=== PATIENT | male | born 1990 | race Caucasian/White ===

== ENCOUNTER 2017-02-25 09:23 | Emergency (ER) | payer SELFPAY ==
[2017-02-25] MEDS ORDERED: ERYTHROMYCIN 0.5% OPH OINTMENT 3.5 GM (ER DISP) OS PRN (11:58)
[2017-02-25] MEDS ORDERED: KETOROLAC TROMETHAMINE 0.45% 4 DROP/0.4 ML DROPERETTE OS ONE (12:01)
--- NOTE | 2017-02-25 12:02 | ER Document Report ---
ED Eye Complaint - General Chief Complaint: Eye Injury Stated Complaint: EYE INJURY Time Seen by Provider: 02/25/17 10:22 Mode of Arrival: Ambulatory Information source: Patient TRAVEL OUTSIDE OF THE [place] IN LAST 30 DAYS: No - HPI Onset: Last week Eye location: Left Injury: Yes Occurred at: Home, Indoors Severity: Severe Pain Level: 5 Exposure: Other - Dog toy flew in his eye Safety glasses worn: No Contact lenses worn: No Associated symptoms: Burning, Pain, Redness, Blurred vision - Related Data Allergies/Adverse Reactions: No Known Allergies Allergy (Verified 02/25/17 09:29) Past Medical History - General Information source: Patient - Social History Smoking Status: Current Every Day Smoker Cigarette use (# per day): Yes - 4-6 cigarettes a day Chew tobacco use (# tins/day): No Smoking Education Provided: Yes - less than 2 min Frequency of alcohol use: Occasional Drug Abuse: None Occupation: [employer] Lives with: Family Family History: Hypertension. denies: Arthritis, CAD, COPD, CVA, DM, Hyperlipidemia, Malignancy, Thyroid Disfunction Patient has suicidal ideation: No Patient has homicidal ideation: No - Past Medical History Cardiac Medical History: Reports: None Pulmonary Medical History: Reports: None EENT Medical History: Reports: None Neurological Medical History: Reports: None Endocrine Medical History: Reports: None Renal/ Medical History: Reports: None Malignancy Medical History: Reports None GI Medical History: Reports: None Musculoskeltal Medical History: Reports Hx Musculoskeletal Trauma Skin Medical History: Reports None Psychiatric Medical History: Reports: None Traumatic Medical History: Reports: None Surgical Hx: Negative - Immunizations Immunizations up to date: Yes Hx Diphtheria, Pertussis, Tetanus Vaccination: Yes Review of Systems - Review of Systems Constitutional: No symptoms reported EENT: Eye pain, Blurred vision, Tearing Cardiovascular: No symptoms reported Respiratory: No symptoms reported Gastrointestinal: No symptoms reported Genitourinary: No symptoms reported Male Genitourinary: No symptoms reported Musculoskeletal: No symptoms reported Skin: No symptoms reported Hematologic/Lymphatic: No symptoms reported Neurological/Psychological: No symptoms reported -: Yes All other systems reviewed and negative Physical Exam - Vital signs Vitals: Temp Pulse Resp BP Pulse Ox 97.8 F 98 18 147/80 H 97 02/25/17 09:25 02/25/17 09:25 02/25/17 09:25 02/25/17 09:25 02/25/17 09:25 Interpretation: Normal - General General appearance: Appears well, Alert - HEENT Head: Normocephalic, Atraumatic Eyes: Normal Cornea: Corneal abrasion, Flourescein stain uptake. No: Corneal ulcer, Dendrite , Embedded foreign body, Superficial foreign body Extraocular movements intact: Yes Eyelashes: Normal Pupils: PERRL Visual acuity- Right eye: 20/25 Visual acuity- Left eye: 20/70 Visual acuity- Both eyes: 20/25 Corrective lenses worn: No - tetracaine drops applied to pts left eye by zulay reinoso prior to exam. Ears: Normal External canal: Normal Tympanic membrane: Normal Sinus: Normal Nasal: Normal Mouth/Lips: Normal Pharynx: Normal Neck: Normal - Respiratory Respiratory status: No respiratory distress Chest status: Nontender Breath sounds: Normal Chest palpation: Normal - Cardiovascular Rhythm: Regular Heart sounds: Normal auscultation Murmur: No - Abdominal Inspection: Normal Distension: No distension Bowel sounds: Normal Tenderness: Nontender Organomegaly: No organomegaly - Back Back: Normal, Nontender - Extremities General upper extremity: Normal inspection, Nontender, Normal color, Normal ROM , Normal temperature General lower extremity: Normal inspection, Nontender, Normal color, Normal ROM , Normal temperature, Normal weight bearing. No: Lisa's sign - Neurological Neuro grossly intact: Yes Cognition: Normal Orientation: AAOx4 Caterina Coma Scale Eye Opening: Spontaneous Caterina Coma Scale Verbal: Oriented Caterina Coma Scale Motor: Obeys Commands Rinard Coma Scale Total: 15 Speech: Normal Motor strength normal: LUE, RUE, LLE, RLE Sensory: Normal - Psychological Associated symptoms: Normal affect, Normal mood - Skin Skin Temperature: Warm Skin Moisture: Dry Skin Color: Normal Course - Vital Signs Vital signs: Temp Pulse Resp BP Pulse Ox 97.5 F 80 20 120/87 H 97 02/25/17 12:35 02/25/17 12:35 02/25/17 12:35 02/25/17 12:35 02/25/17 12:35 Discharge - Discharge Clinical Impression: Left corneal abrasion Qualifiers: Encounter type: initial encounter Qualified Code(s): S05.02XA - Injury of conjunctiva and corneal abrasion without foreign body, left eye, initial encounter Condition: Stable Disposition: HOME, SELF-CARE Additional Instructions: Corneal Abrasion You have a corneal abrasion, a scratch on the surface of the eye. The pain of a corneal abrasion feels like a sharp particle in the eye. Usually, antibiotics are placed in the eye to prevent infection. Occasionally, medication will be placed in the eye to dilate the pupil. This is done to relieve some of your discomfort and is only temporary. Pain medication may be required. Don't drive or operate machinery until you have the use of both your eyes. The abrasion usually is healed in one or two days. A follow-up examination to confirm healing is recommended. Call the doctor or return at once if you develop severe pain, decreasing vision, eye swelling, or purulent drainage. Place 1/2 inch ribbon of the erythromycin and the lower eyelid of the left eye every 3-4 hours while awake up to a max of 6 times in a day. This is for the abrasion. Eyedrop Use Eyedrops are most easily applied by pulling down on the cheek just below the lower eyelid. The lower lid will pop out to form a pouch into which you can drop the medicine. A small brief sting is not unusual, especially if the eye is reddened and irritated already. Use the drops exactly as recommended. You should see the doctor at once if there is a decrease in vision, swelling of the eye, or an increase in discomfort. Oral Narcotic Medication You have been given a prescription for pain control. This medication is a narcotic. It's best taken with food, as nausea can result if taken on an empty stomach. Don't operate machinery or drive within six hours of taking this medication. Do not combine this medicine with alcohol, or with any medication which can cause sedation (such as cold tablets or sleeping pills) unless you get permission from the physician. Narcotics tend to cause constipation. If possible, drink plenty of fluids and eat a diet high in fiber and fruits. FOLLOW-UP CARE: If you have been referred to a physician for follow-up care, call the physician s office for an appointment as you were instructed or within the next two days. If you experience worsening or a significant change in your symptoms, notify the physician immediately or return to the Emergency Department at any time for re-evaluation. Up with the child care associate tomorrow if you cannot get into the one that I listed, call around and to you can get into an eye doctor tomorrow. Please complete the patient's satisfaction survey if you get one and return. If you do not receive a survey you can go to [facility] website [email or web address] and place your comments about your very good care. Thank you very much. It was a pleasure be in your medical provider today. Prescriptions: Hydrocodone/Acetaminophen [[place] 5-325 mg Tablet] 1 tab PO Q6HP PRN #7 tablet PRN Reason: Erythromycin Base [Erythromycin] 3.5 gm LFT_EYE ASDIR PRN #1 oint..gm. PRN Reason: Ketorolac Tromethamine 0.45% [Acuvail 0.45% Oph Soln 0.4 ml/Dropperette] 1 drop LFT_EYE QIDP PRN #1 droperette PRN Reason: Forms: Smoking Cessation Education, Return to Work Referrals: [facility] [Provider Group] - Follow up as needed
[2017-02-25 12:36] VITALS: BP 120/87
== END 2017-02-25 12:36 | disposition home or self-care (01) ==
LOC: ER 09:23
DX: S05.02XA Injury of conjunctiva and corneal abrasion without foreign body, left eye, initial encounter (principal); W20.8XXA Other cause of strike by thrown, projected or falling object, initial encounter; Y93.K9 Activity, other involving animal care; Y92.009 Unspecified place in unspecified non-institutional (private) residence as the place of occurrence of the external cause; F17.210 Nicotine dependence, cigarettes, uncomplicated; Z71.6 Tobacco abuse counseling
CPT/HCPCS: 99283

== ENCOUNTER 2017-10-15 05:53 | Emergency (ER) | payer SELFPAY ==
[2017-10-15] MEDS ORDERED: OXYCODONE-ACETAMINOPHEN 5-325 MG TABLET PO ONE (06:30)
--- NOTE | 2017-10-15 06:41 | ER Document Report ---
ED General - General Chief Complaint: Foot Injury Stated Complaint: FOOT INJURY Time Seen by Provider: 10/15/17 06:28 Notes: 27 year male presents with left foot swelling and tenderness with bruising, constant for about 24 hours since he reportedly kicked a table while intoxicated. He cannot bear weight. He has tingling in his toes, all 5. TRAVEL OUTSIDE OF THE [place] IN LAST 30 DAYS: No - Related Data Allergies/Adverse Reactions: No Known Allergies Allergy (Verified 10/15/17 05:56) Past Medical History - Social History Smoking Status: Current Every Day Smoker Chew tobacco use (# tins/day): No Smoking Education Provided: Yes - The patient ED visit today was directly related to their abuse of tobacco. Frequency of alcohol use: None Drug Abuse: None Family History: Hypertension. denies: Arthritis, CAD, COPD, CVA, DM, Hyperlipidemia, Malignancy, Thyroid Disfunction Patient has suicidal ideation: No Patient has homicidal ideation: No Renal/ Medical History: Denies: Hx Peritoneal Dialysis Musculoskeltal Medical History: Reports Hx Musculoskeletal Trauma - Immunizations Immunizations up to date: Yes Hx Diphtheria, Pertussis, Tetanus Vaccination: Yes Review of Systems - Review of Systems Notes: REVIEW OF SYSTEMS GEN: Denies fever, chills, weight loss ENT: Denies sore throat, nasal discharge, ear pain EYES: Denies blurry vision, eye pain, discharge CV: Denies chest pain, palpitations, edema RESP: Denies cough, shortness of breath, wheezing GI: Denies abdominal pain, nausea, vomiting, diarrhea MSK: Swelling bruising and tenderness of the lateral foot and ankle, SKIN: Denies rash, skin lesions LYMPH: Denies swollen glands/lymph nodes NEURO: Denies headache, focal weakness PSYCH: Denies depression, suicidal or homicidal ideation PHYSICAL EXAMINATION General: No acute distress, well-nourished Head: Atraumatic, normocephalic ENT: Mouth normal, oropharynx moist, no exudates or tonsillar enlargement Eyes: Conjunctiva normal, pupils equal, lids normal Neck: No JVD, supple, no guarding CVS: Normal rate, regular rhythm, no murmurs Resp: No resp distress, equal and normal breath sounds bilaterally GI: Nondistended, soft, no tenderness to palpation, no rebound or guarding Ext: No deformities, edema ecchymosis, dependent, from just distal to the left lateral malleolus to the midfoot and involving the fifth metatarsal base. Compartments appear soft. No foot pain with passive movement of the toes. Back: No CVA or midline TTP Skin: No rash, warm Lymphatic: No lymphadeopathy noted Neuro: Awake, alert. Face symmetric. GCS 15.Subjective decreased sensation in all 5 toes likely secondary to edema Physical Exam - Vital signs Vitals: Temp Pulse Resp BP Pulse Ox 97.9 F 73 18 131/75 H 96 10/15/17 06:03 10/15/17 06:03 10/15/17 06:03 10/15/17 06:03 10/15/17 06:03 Course - Re-evaluation Re-evalutation: 10/15/17 06:40 Foot injury while intoxicated likely resulting in fracture of either the base of the fifth metatarsal, versus ATFL sprain. X-rays of ankle and foot. Percocet for pain. Numbness of the toes does not appear to be due to compartment syndrome based on exam likely secondary to edema , dependent, as the patient has not been elevating his foot. 10/15/17 07:15 X-rays negative. Splint crutches weightbearing as tolerated. Given standard return precautions for occult fracture. I have discussed with the patient there likely diagnosis, aftercare plan, follow -up plans and my usual and customary return precautions. They verbalized understanding of this. - Vital Signs Vital signs: Temp Pulse Resp BP Pulse Ox 97.9 F 73 18 131/75 H 96 10/15/17 06:03 10/15/17 06:03 10/15/17 06:03 10/15/17 06:03 10/15/17 06:03 - Diagnostic Test Radiology reviewed: Image reviewed, Reports reviewed Discharge - Discharge Clinical Impression: Sprain of left ankle Qualifiers: Encounter type: initial encounter Involved ligament of ankle: anterior talofibular ligament Qualified Code(s): S93.492A - Sprain of other ligament of left ankle, initial encounter Condition: Good Disposition: HOME, SELF-CARE Instructions: Ice Packs ([facility]), Oral Narcotic Medication ([facility]), Sprained Ankle ( [facility]) Additional Instructions: If your pain persists beyond 1 week and he still cannot bear weight on her ankle there may be a chance that we missed a small fracture on the x-ray and you should return here to the ER for a repeat film. Prescriptions: Hydrocodone/Acetaminophen [[place] 5-325 mg Tablet] 1 tab PO Q4HP PRN #13 tablet PRN Reason:
--- NOTE | 2017-10-15 07:09 | RADIOLOGY REPORT (SQ) ---
EXAM DESCRIPTION: FOOT LEFT COMPLETE CLINICAL HISTORY: pain ttp ?fx COMPARISON: None. FINDINGS: 3 views of the left foot. No acute fracture or dislocation. The tarsals and metatarsals are appropriately aligned. IMPRESSION: No acute fracture or dislocation.
--- NOTE | 2017-10-15 07:10 | RADIOLOGY REPORT (SQ) ---
EXAM DESCRIPTION: ANKLE LEFT COMPLETE CLINICAL HISTORY: prox lat ttp COMPARISON: None. FINDINGS: 3 views of the left ankle. No acute fracture or dislocation. Tibial plafond and talar dome in appropriate alignment. Base of the fifth metatarsal is intact. IMPRESSION: No acute fracture or dislocation.
[2017-10-15 07:49] VITALS: BP 122/79
== END 2017-10-15 07:53 | disposition home or self-care (01) ==
LOC: ER 05:53
DX: S93.492A Sprain of other ligament of left ankle, initial encounter (principal); S90.32XA Contusion of left foot, initial encounter; W22.03XA Walked into furniture, initial encounter; F17.200 Nicotine dependence, unspecified, uncomplicated
CPT/HCPCS: 99283; 73610; 73630; L1902

== ENCOUNTER 2018-04-12 07:05 | Emergency (ER) | payer SELFPAY ==
[2018-04-12 07:12] VITALS: BP 137/78
--- NOTE | 2018-04-12 07:58 | ER Document Report ---
HPI - HPI Pain Level: 5 Notes: Patient is a 27-year-old male no significant past medical history who presents to the ED complaining of right hand tingling to the first 3-1/2 digits occasionally to the fourth and fifth digit, wrist soreness, occasional weakness with gripping objects 2 years. Patient states that he has this every day and usually at nighttime he feels like his hand is sleeping. Patient states that he does use his hands often, but has never had it evaluated. He denies any IV drug use. Denies any other injury. Denies any drug allergies. No other concerns or complaints. Denies any headache, fever, URI, sore throat, chest pain, palpitations, syncope, cough, shortness of breath, wheeze, dyspnea, abdominal pain, nausea/vomiting/diarrhea, urinary retention, dysuria, hematuria , numbness/tingling, saddle anesthesia, muscle paralysis, or rash. - ROS Systems Reviewed and Negative: Yes All other systems reviewed and negative Past Medical History - Social History Smoking Status: Current Every Day Smoker Family History: Hypertension. denies: Arthritis, CAD, COPD, CVA, DM, Hyperlipidemia, Malignancy, Thyroid Disfunction Renal/ Medical History: Denies: Hx Peritoneal Dialysis Musculoskeletal Medical History: Reports Hx Musculoskeletal Trauma - Immunizations Immunizations up to date: Yes Hx Diphtheria, Pertussis, Tetanus Vaccination: Yes Vertical Provider Document - CONSTITUTIONAL Agree With Documented VS: Yes Notes: PHYSICAL EXAMINATION: GENERAL: Well-appearing, well-nourished and in no acute distress. NECK: Normal range of motion, supple without lymphadenopathy. Spurling neg. LUNGS: Breath sounds clear to auscultation bilaterally and equal. No wheezes rales or rhonchi. HEART: Regular rate and rhythm without murmurs, rubs, gallops. Musculoskeletal: Rt wrist/hand/fingers: FROM to passive/active. Strength 5+/5. N/V intact distal. No bony tenderness. No erythema, ecchymosis, swelling, deformity, or severe atrophy noted. + tinel/phalen at the median nerve and minimally to the ulnar nerve. Extremities: No cyanosis, clubbing, or edema b/l. Peripheral pulses 2+. Capillary refill less than 3 seconds. NEUROLOGICAL: Normal speech, normal gait. Normal sensory, motor exams PSYCH: Normal mood, normal affect. SKIN: Warm, Dry, normal turgor, no rashes or lesions noted. - INFECTION CONTROL TRAVEL OUTSIDE OF THE [place] IN LAST 30 DAYS: No Course - Re-evaluation Re-evalutation: 04/12/18 07:55 Patient is an afebrile, well-hydrated, 27-year-old male who presents to the ED with 2 years of signs and symptoms most consistent with carpal tunnel syndrome of the right side. Vitals are acceptable without any significant tachycardia, tachypnea, or hypoxia. PE is otherwise unremarkable for any neurovascular compromise, obvious tendon/ligament rupture, obvious fracture/dislocation, septic joint, or any track donaldson. No labs or imaging warranted at this time based on H&P. Patient has a positive Tinel and Phalen. There is no sign of infection. Cockup wrist splint given today. I will be sending him home with a prescription for Voltaren gel. Advised patient that he should call orthopedics today to schedule an appointment for further evaluation and management. Recheck with your PCM in 3-5 days as well. Return to the ED with any worsening/ concerning symptoms otherwise as reviewed in discharge. Patient is in agreement. - Vital Signs Vital signs: Temp Pulse Resp BP Pulse Ox 97.6 F 101 H 18 137/78 H 96 04/12/18 07:09 04/12/18 07:09 04/12/18 07:09 04/12/18 07:09 04/12/18 07:09 Discharge - Discharge Clinical Impression: Carpal tunnel syndrome, right Condition: Stable Disposition: HOME, SELF-CARE Additional Instructions: Rest, Ice, Compression, Elevation Use splint as directed Tylenol/ibuprofen as needed Light stretches daily Strength exercises as able Moist heat and massage may help F/u with your PCP in 3-5 days for a recheck Call orthopedics today to schedule an appointment for further evaluation and management Return to the ED with any worsening symptoms and/or development of fever, headache, chest pain, palpitations, syncope, shortness of breath, trouble breathing, abdominal pain, n/v/d, muscle weakness/paralysis, numbness/tingling, swelling, redness, or other worsening symptoms that are concerning to you. Prescriptions: Diclofenac Sodium [Voltaren] 4 gm TP QID PRN #100 gel..gm. PRN Reason: Forms: Elevated Blood Pressure Referrals: [facility] [Provider Group] - Follow up in 3-5 days
== END 2018-04-12 08:05 | disposition home or self-care (01) ==
LOC: ER 07:05
DX: G56.01 Carpal tunnel syndrome, right upper limb (principal); R20.2 Paresthesia of skin; R53.1 Weakness; F17.200 Nicotine dependence, unspecified, uncomplicated
CPT/HCPCS: 99283; L3908

== ENCOUNTER 2019-06-02 09:14 | Emergency (ER) | payer SELFPAY ==
[2019-06-02] MEDS ORDERED: ACETAMINOPHEN 325 MG TABLET PO ONE (10:49)
--- NOTE | 2019-06-02 10:49 | ER Document Report ---
ED General - General Chief Complaint: Shoulder Pain Stated Complaint: FALL/RIGHT SHOULDER PAIN Time Seen by Provider: 06/02/19 10:34 Primary Care Provider: CARMELINA LOVE JR, DO [ACTIVE PROVISIONAL STAFF] - Follow up in 3-5 days Notes: Patient is a 28-year-old male who presents the emergency department with a chief complaint of right shoulder pain. 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 Patient states that he cannot move his right arm and he feels like his symptoms are getting worse. He tried to take Motrin, but did not have any relief of his symptoms. Denies any past medical history. Does not take any medications. TRAVEL OUTSIDE OF THE [place] IN LAST 30 DAYS: No - Related Data Allergies/Adverse Reactions: No Known Allergies Allergy (Verified 06/02/19 09:14) Past Medical History - General Information source: Patient - Social History Smoking Status: Current Every Day Smoker Family History: Hypertension. denies: Arthritis, CAD, COPD, CVA, DM, Hyperlipidemia, Malignancy, Thyroid Disfunction Patient has suicidal ideation: No Patient has homicidal ideation: No Renal/ Medical History: Denies: Hx Peritoneal Dialysis Musculoskeletal Medical History: Reports Hx Musculoskeletal Trauma - Immunizations Immunizations up to date: Yes Hx Diphtheria, Pertussis, Tetanus Vaccination: Yes Review of Systems - Review of Systems Notes: REVIEW OF SYSTEMS: CONSTITUTIONAL : Denies recent illness. Denies recent unintentional weight loss. Denies fever, chills, or sweats. EENT: Denies eye, ear, throat, or mouth pain, discharge, or symptoms. Denies nasal or sinus congestion. CARDIOVASCULAR: Denies chest pain. RESPIRATORY: Denies shortness of breath, cough, congestion, difficulty breathing, or wheezing. GASTROINTESTINAL: Denies nausea, vomiting, and diarrhea. Denies abdominal pain. Denies constipation. GENITOURINARY: Denies difficulty urinating, burning, blood in urine, urgency or frequency. MUSCULOSKELETAL: Denies neck and back pain. See HPI. SKIN: Denies rash, itchiness, or lesions HEMATOLOGIC : Denies easy bruising or bleeding. LYMPHATIC: Denies swollen, painful, enlarged glands. NEUROLOGICAL: Denies no numbness or tingling denies weakness. Denies headache. Denies altered mental status. Denies alteration in speech. PSYCHIATRIC: Denies stress, anxiety, alteration in sleep patterns, or depression. All other systems reviewed and negative. Physical Exam - Vital signs Vitals: Temp Pulse Resp BP Pulse Ox 97.8 F 86 18 140/101 H 98 06/02/19 09:19 06/02/19 09:19 06/02/19 09:19 06/02/19 09:19 06/02/19 09:19 - Notes Notes: PHYSICAL EXAMINATION: GENERAL: Appears well, healthy, well-nourished, no acute distress. HEAD: Normocephalic, atraumatic. EYES: PERRL, conjunctiva normal, all extraocular movements intact, sclera nonicteric ENT: Moist mucous membranes. NECK: Supple, no noticeable swelling, redness, rash. Normal range of motion. LUNGS: Equal breath sounds bilaterally and clear to auscultation. No wheezes rales or rhonchi. CARDIOVASCULAR: S1-S2, regular rate, regular rhythm. Radial pulses 2+, normal. ABDOMEN: Normoactive bowel sounds. Soft, nontender, no guarding, no rebound tenderness, and no masses palpated. EXTREMITIES: Limited range of motion to right shoulder joint. 5/5 strength on all other extremities. Tenderness to right shoulder joint. NEUROLOGICAL: Sensation intact. PSYCH: Normal mood, normal affect. SKIN: Warm, dry. No rash, lesions, ulcerations noted. Normal skin turgor. Course - Re-evaluation Re-evalutation: 06/02/19 12:41 Patient's x-rays negative for any acute fracture or dislocation at this time. No comment of any osteophytes noted by the radiologist. Patient will be placed in a sling and referred out to orthopedics. No vascular compromise noted. Capillary refill less than 3 seconds. I suspect that the patient having recurrent dislocations has caused him to have recurrent pain. Patient reports pain. The patient shoulder is not erythematous, edematous, or hot. I discussed with the patient that physical therapy may be warranted and if he fails physical therapy, then a plan of care with the orthopedic physician would be needed. He is in agreement with this plan. I also encouraged him to continue ibuprofen and Tylenol for pain relief. He is in agreement with this plan. Follow-up precautions were given. Verbal discharge instructions were given to the patient. They verbalized understanding. They are stable for discharge. - Vital Signs Vital signs: Temp Pulse Resp BP Pulse Ox 97.6 F 86 18 134/99 H 100 06/02/19 13:02 06/02/19 09:19 06/02/19 13:02 06/02/19 13:02 06/02/19 13:02 Discharge - Discharge Clinical Impression: Left shoulder pain Qualifiers: Chronicity: chronic Qualified Code(s): M25.512 - Pain in left shoulder Condition: Stable Disposition: HOME, SELF-CARE Instructions: Sling as Treatment ([facility]) Additional Instructions: You were seen today in the emergency department for right shoulder pain. You are being placed in a sling. You are also treated with Decadron, medication to help with inflammation. Please continue to take ibuprofen 600 mg and acetaminophen 1000 g every 6 hours for your pain. Please follow-up with orthopedics in regards to this visit. If you have worsening symptoms, please return to the emergency department. Forms: Return to Work Referrals: CARMELINA LOVE JR, [ACTIVE PROVISIONAL STAFF] - Follow up in 3-5 days
--- NOTE | 2019-06-02 12:19 | RADIOLOGY REPORT (SQ) ---
EXAM DESCRIPTION: SHOULDER RIGHT 2 OR MORE VIEWS COMPLETED DATE/TIME: 06/02/2019 12:10 pm REASON FOR STUDY: eval dislocation COMPARISON: 10/05/2015 NUMBER OF VIEWS: Three views. TECHNIQUE: Internal rotation, external rotation, and Y view images acquired of the right shoulder. LIMITATIONS: None. FINDINGS: MINERALIZATION: Normal. BONES: No acute fracture. No worrisome bone lesions. JOINTS: No dislocation. VISUALIZED LUNGS AND RIBS: No pneumothorax. No rib fracture. SOFT TISSUES: No radiopaque foreign body. OTHER: No other significant finding. IMPRESSION: NEGATIVE STUDY OF THE RIGHT SHOULDER. NO RADIOGRAPHIC EVIDENCE OF ACUTE INJURY. TECHNICAL DOCUMENTATION: JOB ID: [id number] [employer]- All Rights Reserved Reading location - IP/workstation name: [email or web address]
[2019-06-02] MEDS ORDERED: DEXAMETHASONE SOD PHOS INJ 10 MG/1 ML VIAL IM ONE (12:42)
[2019-06-02 13:05] VITALS: BP 134/99
== END 2019-06-02 13:02 | disposition home or self-care (01) ==
LOC: ER 09:14
DX: M25.511 Pain in right shoulder (principal); F17.200 Nicotine dependence, unspecified, uncomplicated
CPT/HCPCS: 99283; 96374; 73030; J1100

== ENCOUNTER 2019-10-14 06:54 | Emergency (ER) | payer SELFPAY ==
[2019-10-14] MEDS ORDERED: IPRATROPIUM/ALBUTEROL 0.5-2.5 MG/3 ML AMPUL NEB ONE (08:42)
--- NOTE | 2019-10-14 08:42 | ER Document Report ---
ED Respiratory Problem - General Chief Complaint: Cold Symptoms Stated Complaint: SHORTNESS OF BREATH Time Seen by Provider: 10/14/19 08:14 Notes: CHIEF COMPLAINT: Shortness of breath HPI: 29-year-old male presenting to the emergency department for evaluation of shortness of breath episodes over the last 3 months worse over the last 3 days. Patient feels like he is wheezing. He has had subjective fevers. Patient states he does occasionally smoke. Patient's friend providing additional history states the patient does have moderate anxiety with these episodes. Patient has no asthma history. Patient reports chest pain with coughing. Patient states 2 days ago he did cough up some blood because of coughing episodes ROS: See HPI - all other systems were reviewed and are otherwise negative Constitutional: + fever Eyes: no drainage, no blurred vision ENT: no runny nose, no sore throat Cardiovascular: no chest pain Resp: + SOB, + cough GI: no vomiting, no diarrhea, no abdominal pain : no dysuria Integumentary: no rash Allergy: no hives Musculoskeletal: no extremity pain or swelling Neurological: no numbness/tingling, no weakness MEDICATIONS: I agree with the patient medications as charted by the RN. ALLERGIES: I agree with the allergies as charted by the RN. PAST MEDICAL HISTORY/PAST SURGICAL HISTORY: Reviewed and agree as charted by RN. SOCIAL HISTORY: Reviewed and agree as charted by RN. FAMILY HISTORY: No significant familial comorbid conditions directly related to patient complaint EXAM: Reviewed vital signs as charted by RN. CONSTITUTIONAL: Alert and oriented and responds appropriately to questions. Well-appearing; well-nourished, moderate distress secondary to shortness of breath HEAD: Normocephalic; atraumatic EYES: PERRL; Conjunctivae clear, sclerae non-icteric ENT: normal nose; no rhinorrhea; moist mucous membranes; pharynx without lesions noted, no uvula edema or deviation, no tonsillar hypertrophy, phonation normal NECK: Supple without meningismus; non-tender; no cervical lymphadenopathy, no masses CARD: Tachycardic; no murmurs, no clicks, no rubs, no gallops; symmetric distal pulses RESP: Normal chest excursion without splinting, mild tachypnea; breath sounds clear and equal bilaterally; no wheezes, no rhonchi, no rales, pulse oximetry 98% on room air not hypoxic ABD/GI: Normal bowel sounds; non-distended; soft, non-tender, no rebound, no guarding; no palpable organomegaly or masses. BACK: The back appears normal and is non-tender to palpation, there is no CVA tenderness EXT: Normal ROM in all joints; non-tender to palpation; no cyanosis, no effusions, no edema SKIN: Normal color for age and race; warm; dry; good turgor; no acute lesions noted NEURO: Moves all extremities equally; Motor and sensory function intact PSYCH: The patient's mood and manner are anxious. Grooming and personal hygiene are appropriate. MDM: 29-year-old male presenting for evaluation of shortness of breath intermittent episodes for 3 months. Worse over the last 3 days. Patient appears to be mildly anxious, slightly tachypneic, tachycardic. Lung sounds are reasonably clear to auscultation. Will give breathing treatment, steroids in case this is spastic or asthma. Will obtain basic screening labs to include a d-dimer given the history and cannot PERC the patient out. TRAVEL OUTSIDE OF THE [place] IN LAST 30 DAYS: No - Related Data Allergies/Adverse Reactions: No Known Allergies Allergy (Verified 10/14/19 07:11) Past Medical History - Social History Smoking Status: Current Every Day Smoker Drug Abuse: Marijuana Family History: Hypertension. denies: Arthritis, CAD, COPD, CVA, DM, Hyperli pidemia, Malignancy, Thyroid Disfunction Patient has suicidal ideation: No Patient has homicidal ideation: No Pulmonary Medical History: Denies: Hx Asthma, Hx Bronchitis Renal/ Medical History: Denies: Hx Peritoneal Dialysis Musculoskeletal Medical History: Reports Hx Musculoskeletal Trauma - Immunizations Immunizations up to date: Yes Hx Diphtheria, Pertussis, Tetanus Vaccination: Yes Physical Exam - Vital signs Vitals: Temp Pulse Resp BP Pulse Ox 97.3 F 118 H 18 118/62 100 10/14/19 07:12 10/14/19 07:12 10/14/19 07:12 10/14/19 07:12 10/14/19 07:12 Course - Re-evaluation Re-evalutation: 10/14/19 10:57 Patient lab work and chest x-ray did not show acute emergent abnormalities. D- dimer is negative. I suspect there is also an anxiety component to this. There may be a mild bronchitis with bronchospasm given his smoking history. We will place him on a short course of steroids, albuterol inhaler, hydroxyzine for anxiety, follow-up with referral medical MD. Low suspicion for ACS or PE given the negative d-dimer. Patient is hyperventilating in the room. 10/14/19 10:59 - Vital Signs Vital signs: Temp Pulse Resp BP Pulse Ox 97.3 F 109 H 16 120/76 99 10/14/19 10:54 10/14/19 10:54 10/14/19 10:54 10/14/19 10:54 10/14/19 10:54 - Laboratory Result Diagrams: 10/14/19 09:05 10/14/19 09:05 Laboratory results interpreted by me: 10/14/19 10/14/19 09:05 09:05 WBC 10.9 H RBC 5.76 H Hgb 17.4 H Sodium 135.3 L Carbon Dioxide 20 L BUN 27 H Calcium 11.3 H Discharge - Discharge Clinical Impression: Bronchitis, acute, with bronchospasm, Anxiety Condition: Stable Disposition: HOME, SELF-CARE Additional Instructions: Use the albuterol inhaler 2 puffs every 4 hours as needed for shortness of breath. Take the steroids as prescribed. Take the hydroxyzine if you begin to hyperventilate or have anxiety. Follow-up closely with a primary care provider for reevaluation of symptoms. Your chest x-ray and lab work today did not suggest acute emergent abnormalities Prescriptions: Albuterol Sulfate [Proair HFA Inhalation Aerosol 8.5 gm MDI] 2 puff IH Q4H PRN #1 mdi PRN Reason: Hydroxyzine Pamoate [Vistaril 25 mg Capsule] 25 mg PO Q6 PRN #20 capsule PRN Reason: Azithromycin [Zithromax 250 mg Tablet] 250 mg PO ASDIR PRN #6 tablet PRN Reason: Forms: Return to Work
[2019-10-14] MEDS ORDERED: DEXAMETHASONE SOD PHOS INJ 10 MG/1 ML VIAL IV ONE (08:43)
[2019-10-14 09:19] LABS: ABSOLUTE BASOPHILS # (AUTO) 0.1 10^3/uL (0.0-0.2); ABSOLUTE EOSINOPHILS # (AUTO) 0.2 10^3/uL (0.0-0.6); ABSOLUTE LYMPHOCYTES (AUTO) 2.8 10^3/uL (0.5-4.7); ABSOLUTE MONOCYTES (AUTO) 1.4 10^3/uL (0.1-1.4); ABSOLUTE NEUT (AUTO) 6.5 10^3/uL (1.7-8.2); BASOPHILS % (AUTO) 0.5 % (0-2); EOSINOPHILS % (AUTO) 2.2 % (0-6); HEMOGLOBIN 17.4 g/dL (13.5-17.0); LYMPHOCYTES % (AUTO) 25.8 % (13-45); MEAN CORPUSCULAR HEMOGLOBIN 30.2 pg (27.0-33.4); MEAN CORPUSCULAR HGB CONC 34.8 g/dL (32.0-36.0); MEAN CORPUSCULAR VOLUME 87 fl (80-97); MONOCYTES % (AUTO) 12.4 % (3-13); PLATELET COUNT 375 10^3/uL (150-450); RED BLOOD COUNT 5.76 10^6/uL (4.35-5.55); RED CELL DISTRIBUTION WIDTH 13.1 % (11.5-14.0); SEGMENTED NEUTROPHILS % (AUTO) 59.1 % (42-78); TOTAL CELLS COUNTED % (AUTO) 100 %; WHITE BLOOD COUNT 10.9 10^3/uL (4.0-10.5)
[2019-10-14 09:32] LABS: INTERNATIONAL RATION (INR) 1.02; PROTHROMBIN TIME 13.4 SEC (11.4-15.4)
[2019-10-14 09:47] LABS: ANION GAP 15 (5-19); BLOOD UREA NITROGEN 27 mg/dL (7-20); CALCIUM 11.3 mg/dL (8.4-10.2); CARBON DIOXIDE 20 mmol/L (22-30); CHLORIDE 100 mmol/L (98-107); GLUCOSE 90 mg/dL (75-110); POTASSIUM 4.4 mmol/L (3.6-5.0)
[2019-10-14 09:55] LABS: D-DIMER < 0.27 ug/mL (0.00-0.50)
--- NOTE | 2019-10-14 09:57 | RADIOLOGY REPORT (SQ) ---
EXAM DESCRIPTION: CHEST 2 VIEWS COMPLETED DATE/TIME: 10/14/2019 9:26 am REASON FOR STUDY: sob COMPARISON: None. TECHNIQUE: Frontal and lateral radiographic views of the chest acquired. NUMBER OF VIEWS: Two view. LIMITATIONS: None. FINDINGS: LUNGS AND PLEURA: No opacities, masses or pneumothorax. No pleural effusion. MEDIASTINUM AND HILAR STRUCTURES: No masses or contour abnormalities. HEART AND VASCULAR STRUCTURES: Heart normal size. No evidence for failure. BONES: No acute findings. HARDWARE: None in the chest. OTHER: No other significant finding. IMPRESSION: NO SIGNIFICANT RADIOGRAPHIC FINDING IN THE CHEST. TECHNICAL DOCUMENTATION: JOB ID: [id number] [employer] All Rights Reserved Reading location - IP/workstation name: [email or web address]
[2019-10-14] MEDS ORDERED: HYDROXYZINE PAMOATE 25 MG CAPSULE PO ONE (10:35)
[2019-10-14 10:55] VITALS: BP 120/76
== END 2019-10-14 11:16 | disposition home or self-care (01) ==
LOC: ER 06:54
DX: J20.9 Acute bronchitis, unspecified (principal); F41.9 Anxiety disorder, unspecified; R06.02 Shortness of breath; R50.9 Fever, unspecified; R07.9 Chest pain, unspecified; F17.200 Nicotine dependence, unspecified, uncomplicated; F12.10 Cannabis abuse, uncomplicated
CPT/HCPCS: 94640; 99285; 96374; 36415; 85025; 85610; 80048; 85379; 71046; J1100; J7620